=== PATIENT | female | born 1965 | race Caucasian/White ===

== ENCOUNTER 2021-12-25 09:47 | Emergency (ER) | payer MEDICAID ==
[~2021-12-25] VITALS: Ht 148.6 cm; Wt 50.0 kg
[2021-12-25 10:39] VITALS: BP 106/57
[2021-12-25] MEDS ORDERED: acetaminophen 325mg tablet PO ONE (12:10)
[2021-12-25] MEDS ORDERED: ketorolac trometh. 30mg/ml inj. IM ONE (12:10)
[2021-12-25] MEDS ORDERED: LIDO5CRE18 TOP (12:16)
[2021-12-25] MEDS ORDERED: IBUP-1985 PO (12:16)
== END 2021-12-25 12:54 | disposition home or self-care (01) ==
LOC: ER 09:48
DX: R20.0 Anesthesia of skin (principal); F17.200 Nicotine dependence, unspecified, uncomplicated; Z79.899 Other long term (current) drug therapy; W19.XXXA Unspecified fall, initial encounter; Y93.89 Activity, other specified; Y92.89 Other specified places as the place of occurrence of the external cause; Y99.8 Other external cause status
CPT/HCPCS: 72131; 96372; 99284; J1885

== ENCOUNTER 2022-06-12 18:11 | Emergency (ER) | payer MEDICAID ==
[~2022-06-12 18:11] MED LIST: IBUP-1985 PO; LIDO5CRE18 TOP
== END 2022-06-12 19:16 | disposition left against medical advice (07) ==
LOC: ER 18:12
DX: M79.646 Pain in unspecified finger(s) (principal); Z53.21 Procedure and treatment not carried out due to patient leaving prior to being seen by health care provider